=== PATIENT | female | born 1995 | race Caucasian/White ===

== ENCOUNTER 2025-02-11 17:10 | Outpatient (CLI) | payer BC, SELFPAY ==
--- NOTE | 2025-02-11 17:30 | CRLHL7_ITS ---
For Patients: As a result of the Century Cures Act, medical imaging exams and procedure reports are released immediately into your electronic medical record. You may view this report before your referring provider. If you have questions, please contact your health care provider. OB ULTRASOUND INDICATION: Dating and viability. TECHNIQUE: Real time dimas scale imaging of the fetus was performed. Transvaginal imaging performed. LMP: 12/12/2024. JOYC by LMP: 09/18/2025. GA: 8 w, 5 d. *Dating off. See CRL. Previous US: No. CRL: 1.4 cm. 7 w 4 d. JOCY: 09/26/2025. FHR: 154 BPM. Gestational sac: 3.1 cm. Appears within normal limits. Yolk sac: 2.7 mm. Appears within normal limits. Right ovary: 2.4 x 3.8 x 3.5 cm. CL. Left ovary: 3.6 x 1.9 x 1.3 cm. IMPRESSION: Single living intrauterine measures 7 weeks 4 days with a sonographic due date 09/26/2025. Incidental corpus luteal cyst right ovary. Cain Bingham M.D. Diagnostic Radiologist [email or web address] BERTHA/Dictated by: Cain Bingham MD @ 02/11/2025 7:08:00 PM (Electronically Signed)
== END 2025-02-11 17:11 | disposition home or self-care (01) ==
LOC: US 17:10
PROVIDERS: Visit Provider Registered Nurse
DX: O34.81 Maternal care for other abnormalities of pelvic organs, first trimester (principal); N83.11 Corpus luteum cyst of right ovary; Z3A.01 Less than 8 weeks gestation of pregnancy
CPT/HCPCS: 76817; 83021; 86703; 86706; 86803; 86850; 86900; 86901; 87086; 87340; 87491; 87591; 87624

== ENCOUNTER 2025-02-11 18:26 | Outpatient (CLI) | payer BC, SELFPAY ==
[2025-02-11 22:12] LABS: Chlamydia DNA Amplified* NOT DETECTED (No Detected); GC DNA Amplified* NOT DETECTED (No Detected)
[2025-02-13 21:46] LABS: HPV Source Cervix
[2025-02-18 11:14] LABS: Pap Test Digital Imaging Done; Pap Test Reviewed by Pathologi Done
== END 2025-02-11 18:27 | disposition home or self-care (01) ==
PROVIDERS: Visit Provider Registered Nurse
DX: Z34.91 Encounter for supervision of normal pregnancy, unspecified, first trimester (principal); Z12.4 Encounter for screening for malignant neoplasm of cervix
CPT/HCPCS: 83020; 83021; 85660; 86592; 86703; 86704; 86706; 86762; 86787; 86803; 86850; 86900; 86901; 87086; 87340; 87491; 87591; 87624; 87625; 88141; 88142; 88175